=== PATIENT | male | born 1995 | race Caucasian/White ===

== ENCOUNTER 2020-05-10 14:27 | Emergency (ER) | payer OTHER, SELFPAY ==
[2020-05-10 15:27] VITALS: BP 145/76; BP 159/99; PULSE 102; PULSE 82; RESP 18; TEMP 36.9; O2SAT 100; O2SAT 99; BMI 36.2
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
[2020-05-10] MEDS: Acetaminophen 325 MG TABLET 975 MG PO (17:51)
[2020-05-10 18:58] VITALS: BP 152/88; PULSE 73; RESP 16; TEMP 36.9; O2SAT 98
== END 2020-05-10 19:05 | disposition home or self-care (01) ==
PROVIDERS: Emergency Provider Internal Medicine
DX: S39.012A Strain of muscle, fascia and tendon of lower back, initial encounter (principal); V43.52XA Car driver injured in collision with other type car in traffic accident, initial encounter; Y93.9 Activity, unspecified; Y92.410 Unspecified street and highway as the place of occurrence of the external cause; Y99.9 Unspecified external cause status
CPT/HCPCS: 72100; 99283; 99284

== ENCOUNTER 2021-04-15 15:48 | Emergency (ER) | payer OTHER, SELFPAY ==
[2021-04-15 15:53] VITALS: BP 146/85; PULSE 83; RESP 18; TEMP 36.9; O2SAT 98; BMI 38.5
[2021-04-15 16:49] LABS: Influenza A PCR NEGATIVE (Negative); Influenza B PCR NEGATIVE (Negative); Resp Syncy Virus RNA Qual PCR NEGATIVE (Negative); SARS COV2 PCR INHOUSE NEGATIVE (Negative)
--- NOTE | 2021-04-15 18:21 | ED.URI ---
HPI - URI/Sore Throat General Chief Complaint: Upper Respiratory Symptoms Stated Complaint: stuffy nose,coughing ,body aches Time Seen by Provider: 04/15/21 18:07 Source: patient Mode of arrival: ambulatory Limitations: no limitations History of Present Illness HPI Narrative: 25-year-old male here with complaints of generalized weakness, chills, runny nose noted today. Also having cough. No fevers or chills or vomiting or diarrhea or chest pain or shortness of breath. Patient received norin.tv vaccine x2 Related Data Allergies Allergy/AdvReac Type Severity Reaction Status Date / Time No Known Allergies Allergy Verified 04/15/21 18:14 [No Known Allergies*] Review of Systems Review of Systems: Yes all other systems are reviewed and are negative Constitutional: Constitutional: Reports no additional constitutional complaints, Denies body ache(s), Denies chills, Denies fever(s), Denies headache(s) and Reports weakness Eyes: Eyes: Reports no additional eye complaints and Denies change in vision ENT: Reports system reviewed and no additional complaints, except as documented, Denies dizziness, Denies headache(s), Reports nasal congestion, Reports nasal discharge and Denies neck pain Cardiovascular: Cardiovascular: Reports no additional cardiovascular complaints, Denies chest pain, Denies leg edema and Denies dyspnea Respiratory: Respiratory: Reports no additional respiratory complaints, Reports cough and Denies dyspnea Gastrointestinal: Gastrointestinal: Reports no additional gastrointestinal complaints, Denies abdominal pain, Denies diarrhea, Denies nausea and Denies vomiting Genitourinary: Genitourinary: Denies urinary incontinence Musculoskeletal: Musculoskeletal: Reports no additional musculoskeletal complaints, Denies back pain, Denies arthralgias, Denies joint swelling, Denies neck pain, Denies numbness and Denies tingling Integumentary/Breasts: Skin/Breast: Reports system reviewed and no additional complaints, except as docu and Denies rash Neurologic: Reports system reviewed and no additional complaints, except as documented, Denies Abnormal speech present, Denies dizziness, Denies headache(s), Denies numbness, Denies tingling and Reports weakness PMFSH Past Medical History Attestation statement: The following information was validated with the patient. Source: old records reviewed and nursing notes reviewed Social History Social History Advance Directives: No Advance Directives Information Provided: No Physical Exam Vital Signs: Vital Signs: Last Vital Signs Temp 98.4 F 04/15/21 15:53 Pulse 83 04/15/21 15:53 Resp 18 04/15/21 15:53 BP 146/85 H 04/15/21 15:53 Pulse Ox 98 04/15/21 15:53 BMI result Body Mass Index 38.5 Const: General: cooperative, healthy appearing, comfortable and no acute distress Orientation/consciousness: patient oriented x3 Limitations: no limitations HENMT: Head: Yes normal to inspection Ears: hearing grossly normal bilaterally and TM's normal bilaterally General nose exam: Normal external nose present Face and sinus: Yes normal facial exam Mouth: Normal oral and palatal mucosa present Throat: Yes posterior oropharynx normal, Yes tonsils normal and Yes uvula midline Eyes: General: appearance normal, both eyes and all related structures Pupils: Equal, round and reactive pupils present Neck: Neck: Yes normal visual inspection, Yes full ROM, Yes no lymphadenopathy and Yes no meningeal signs Chest: Chest palpation & inspection: normal inspection of the chest Resp: Effort & Inspection: normal respiratory effort Auscultation: clear to auscultation bilaterally Cardio: Rate: regular rate Rhythm: regular rhythm Peripheral pulses: Peripheral pulses 2+ throughout GI: Inspection: Yes normal to inspection Palpation (GI): Soft to palpation and nontender Auscultation: normal bowel sounds Back/Spine/Pelvis: Thoracic/Lumbar Spine: thoracic and lumbar spine normal to inspection Skin: General skin exam: no rashes or lesions noted Neuro: General: patient oriented x3, no meningeal signs, no focal motor deficits and normal sensation to monofilament Cranial nerves: Yes Equal, round and reactive pupils present Cognition (Neuro): normal cognition Speech: No Abnormal speech present Gait exam (Neuro): Normal gait present Motor exam (neuro): 5/5 motor strength present throughout Extrem: General: Yes normal to inspection Course Course Course Narrative: 25-year-old male here with complaints of generalized weakness, chills, stuffy and runny nose and cough since waking. Exam is benign. COVID, flu, RSV is negative. I discussed with the patient that he should retest for COVID and 48 hours for persistent symptoms. We discussed he should quarantine the meantime. Reviewed worrisome signs and symptoms of when to return to the emergency department. Comfortable discharge home. [facility] - URI/Sore Throat Medical Records Attestation: I reviewed the patient's medical records. Lab Data Attestation: I reviewed the patient's lab results. Labs: Lab Results 04/15/21 Range/Units 16:02 Influenza Type A (PCR) NEGATIVE (Negative) Influenza Type B (PCR) NEGATIVE (Negative) RSV RNA Qual (PCR) NEGATIVE (Negative) SARS-CoV-2 RNA (RT-PCR) NEGATIVE (Negative) Discharge Plan Discharge Clinical Impression: Viral infection Patient Disposition: Home, Self-Care Instructions: Viral Syndrome (ED) Additional Instructions: Your COVID test today was negative. However your symptoms began today and so you need to retest in 48 hours to be sure that you do not of COVID. In the meantime you should quarantine at home. This means not going to work. Increase fluids, rest Take Motrin or Tylenol if able as needed for pain or fever Referrals: Physician,Unknown J [Primary Care Provider] - 2 days Stand Alone Forms: Work/School Release Interventions: ED Discharge Assessment Last Done: 04/15/21 18:36 Discharge Date/Time: 04/15/21 18:37
== END 2021-04-15 18:37 | disposition home or self-care (01) ==
PROVIDERS: Emergency Provider Internal Medicine
DX: B34.9 Viral infection, unspecified (principal); Z20.822 Contact with and (suspected) exposure to COVID-19; R05.9 Cough, unspecified
CPT/HCPCS: 0241U; 36415; 99283

== ENCOUNTER 2022-07-16 12:07 | Emergency (ER) | payer OTHER, SELFPAY ==
[2022-07-16 12:42] VITALS: BP 123/71; PULSE 78; RESP 18; TEMP 36.7; O2SAT 97; BMI 26.9
[2022-07-16 13:08] LABS: IDNOW Serial# 6674DD1D; Strep A Nucleic Acid Negative (Negative)
[2022-07-16 13:39] LABS: Influenza A PCR NEGATIVE (Negative); Influenza B PCR NEGATIVE (Negative); Resp Syncy Virus RNA Qual PCR NEGATIVE (Negative); SARS COV2 PCR INHOUSE NEGATIVE (Negative)
--- NOTE | 2022-07-16 15:16 | ED.URI ---
HPI - URI/Sore Throat General Chief Complaint: Upper Respiratory Symptoms Stated Complaint: sore throat, cough Time Seen by Provider: 07/16/22 15:07 Source: patient Mode of arrival: ambulatory Limitations: no limitations History of Present Illness MD elicited complaint: cough, sore throat, rhinorrhea and nasal congestion Onset (ago): day(s) (2) Consistency: constant Severity: mild Description of mucous: clear, watery and yellow Able to tolerate fluids by mouth: Yes Exacerbating factors: swallowing Relieving factors: nothing Associated symptoms: chills, voice changes, myalgias, rhinorrhea, nasal congestion, sore throat and cough Treatments prior to arrival: none Related Data Previous Rx's Medication Instructions Recorded cyclobenzaprine 10 mg tablet 10 mg PO TID PRN muscle spasm #10 05/10/20 tabs ibuprofen 600 mg tablet 600 mg PO Q8H PRN fever or pain 05/10/20 #20 tabs lidocaine 5 % topical patch 1 patch topical DAILY #15 ea 05/10/20 (Lidoderm) azithromycin 250 mg tablet See Rx Instructions PO .COMPLEX #6 07/16/22 tabs Allergies Allergy/AdvReac Type Severity Reaction Status Date / Time No Known Allergies Allergy Verified 05/10/20 15:31 Review of Systems Review of Systems: Constitutional : No Weight loss, No Fever, + Chills, No Night Sweats, + Fatigue, + Malaise ENT/Mouth : No Hearing loss, No Ear Pain, + Nasal Congestion, No Sinus Pain, No Hoarseness, + sore throat, + Rhinorrhea, No Swallowing Difficulty Eyes: No Eye Pain, No Swelling, No Redness, No Foreign Body, No Discharge, No Vision Changes Cardiovascular : No Chest Pain, No SOB, No Dyspnea on Exertion, No Orthopnea, No Edema, No Palpitations Respiratory : + Cough, No Sputum, No Wheezing, No Smoke Exposure, No Dyspnea Gastrointestinal : No Nausea, No Vomiting, No Diarrhea, No Constipation, No abdominal Pain, No Hematochezia, No Melena Genitourinary : no irregular bleeding, No Dysuria, No Urinary Frequency, No Hematuria, No Urinary Incontinence, No Urgency, No Flank Pain, No Urinary Flow Changes, No Hesitancy Musculoskeletal : No joint pain, + Myalgias, No Joint Swelling Skin : No Skin Lesions, No rash Neuro : No Weakness, No Numbness, No Paresthesias, No Loss of Consciousness, No Dizziness, No Headache Psych : No Anxiety/Panic, No Depression, No SI/HI/AH/VH, No Social Issues, Heme/Lymph: No Bruising, No Bleeding,No Lymphadenopathy Endocrine : No Polyuria, No Polydipsia, No Temperature Intolerance Yes all other systems are reviewed and are negative [facility] Past Medical History Attestation statement: The following information was validated with the patient. Source: old records reviewed and nursing notes reviewed Medical History No known health problems Social History Social History Advance Directives: No Advance Directives Information Provided: Yes Physical Exam Vital Signs: Vital Signs: Last Vital Signs Temp 98.0 F 07/16/22 12:42 Pulse 78 07/16/22 12:42 Resp 18 07/16/22 12:42 BP 123/71 07/16/22 12:42 Pulse Ox 97 07/16/22 12:42 O2 Del Method 07/16/22 12:42 BMI result Body Mass Index 26.9 Vital signs reviewed. Blood pressure normal. Pulse normal. Respiration normal. Oxygen normal. Temperature normal. Appearance: Alert. Oriented X3. No acute distress. Head: Normal external exam. Normocephalic. Atraumatic. Eyes: PERRLA. EOMI. Conjunctiva and sclera normal. Eyelids normal. ENT: EAC normal. TM's Normal. Pharynx normal. Uvula midline. Moist mucous membranes. No lesions/ulcerations or masses noted on the tongue. Normal voice. No trismus noted. No drooling noted. No muffled voice noted. Neck: Normal inspection. Neck supple. FROM. No adenopathy. Thyroid Normal. No meningeal signs. CVS: Normal heart rate and rhythm. Heart sound normal. Pulses normal throughout. No murmurs/rales/gallops. Respiratory: No respiratory distress. Painless inspiration. Breath sounds normal. No wheezes/rales/rhonchi noted. Chest nontender. No accessory muscle usage noted or decreased air movement noted. Abdomen: Soft and nontender. Back: Full range of motion noted. Nontender. Skin: Skin warm and dry. Normal skin color. Normal skin turgor. No rashes/lesions/lacerations noted. Extremities: Extremities exhibit normal range of motion and nontender. Neuro: Oriented X 3. No motor deficit. No sensory deficit. Reflexes normal. Normal steady gait. No focal neuro deficits noted. CN's II-XII intact bilaterally? Vascular: + radial pulses. Normal cap refill. No cyanosis noted to upper extremity nails Course Course Course Narrative: This patient presents with URI symptoms consistent with possible bacterial pharyngitis versus viral syndrome. Differential diagnosis include RSV or influenza. Presentation not consistent with acute bacterial pneumonia, influenza, asthma, transient airway hyperresponsiveness. Presentation not consistent with chronic causes of cough (including GERD, asthma, postnasal discharge, medication side effect, CHF, lung cancer or mass). Not consistent with peritonsillar abscess. Not consistent with Antione's angina. Patient negative for COVID/RSV/flu and strep. Will DC home with antibiotics and symptomatic treatment instructions return if any new or worsening symptoms and to follow up with primary care provider. Patient understands agrees with this plan. Medical Decision Making Lab Data MDM Lab Attestation statement: I reviewed the patient's lab results. Labs: Lab Results 07/16/22 07/16/22 Range/Units 12:48 12:48 Influenza Type A (PCR) NEGATIVE (Negative) Influenza Type B (PCR) NEGATIVE (Negative) RSV RNA Qual (PCR) NEGATIVE (Negative) SARS-CoV-2 RNA (RT-PCR) NEGATIVE (Negative) S. pyogenes GrpA OMAR Negative (Negative) Prescription Management I considered prescription management with: Antibiotic (For URI) Discharge Plan Discharge Clinical Impression: Upper respiratory infection Patient Disposition: Home, Self-Care Instructions: Upper Respiratory Infection (ED) Prescriptions: New azithromycin 250 mg tablet See Rx Instructions PO .COMPLEX Qty: 6 0RF Rx Instructions: take 500 mg today (day 1), then 250 mg for 4 days (days 2-5) No Action cyclobenzaprine 10 mg tablet 10 mg PO TID PRN (Reason: muscle spasm) Qty: 10 0RF ibuprofen 600 mg tablet 600 mg PO Q8H PRN (Reason: fever or pain) Qty: 20 0RF lidocaine [Lidoderm] 5 % adhesive patch,medicated 1 patch topical DAILY Qty: 15 0RF Rx Instructions: leave on most painful area for up to 12 hrs Referrals: Physician,Unknown J [Primary Care Provider] - (your pcp)
== END 2022-07-16 15:47 | disposition home or self-care (01) ==
PROVIDERS: Emergency Provider Emergency Medicine
DX: J06.9 Acute upper respiratory infection, unspecified (principal); J02.9 Acute pharyngitis, unspecified; Z20.822 Contact with and (suspected) exposure to COVID-19; Z20.828 Contact with and (suspected) exposure to other viral communicable diseases
CPT/HCPCS: 0241U; 87651; 99282; 99283

== ENCOUNTER 2022-08-01 19:56 | Emergency (ER) | payer OTHER, SELFPAY ==
--- NOTE | ~2022-08-01 | CT_ITS ---
EXAMINATION: CT ABDOMEN AND PELVIS WITHOUT CONTRAST CLINICAL INFORMATION: Bilateral flank pain COMPARISON: None available. TECHNIQUE: Multidetector volumetric imaging was performed from the superior aspect of the liver through the pubic symphysis. Sagittal and coronal reformatted images were obtained on the technologist's workstation. This CT examination was performed using dose optimization techniques as appropriate, variously including the following: *Automated exposure control *Adjustment of mA and/or kV according to patient size (this includes techniques or standardized protocols for targeted exams where dose is matched to indication/reason for exam; i.e. extremities or head) *Use of iterative reconstruction technique DLP: 591 mGy-cm FINDINGS: LUNG BASES: Unremarkable. ABDOMINAL AND PELVIC WALL: Small fat-containing umbilical hernia. LIVER AND BILIARY TREE: Unremarkable. GALLBLADDER: Unremarkable. PANCREAS: Unremarkable. SPLEEN: Unremarkable. ADRENAL GLANDS: Unremarkable. KIDNEYS AND URETERS: No hydronephrosis or nephrolithiasis GASTROINTESTINAL TRACT: Postsurgical changes of gastric sleeve. Colonic diverticulosis without evidence of diverticulitis. Normal appendix. VASCULAR: Unremarkable. LYMPH NODES/PERITONEUM: No lymphadenopathy. FREE FLUID: None. BLADDER: Unremarkable. PELVIC VISCERA: Unremarkable. OSSEOUS STRUCTURES: L4 pars defects. Multilevel degenerative disc disease. CT/CT abdomen pelvis wo IV con IMPRESSION: 1. No acute findings to extent symptoms of pain. No hydronephrosis or nephrolithiasis.
[2022-08-01 20:00] VITALS: BP 140/74; PULSE 76; RESP 18; TEMP 36.6; O2SAT 100; BMI 25.1
--- NOTE | 2022-08-01 20:02 | ED.BACK ---
HPI - Back Pain/Injury General Chief Complaint: Back Pain/Injury <NAMRATA Figueroa - Last Filed: 08/01/22 20:03> Stated Complaint: Back Pain <NAMRATA Figueroa - Last Filed: 08/01/22 20:03> Time Seen by Provider: 08/01/22 21:28 <NAMRATA Figueroa - Last Filed: 08/01/22 20:03> Source: patient and RN notes reviewed <Nirav Arshad - Last Filed: 08/01/22 22:29> Mode of arrival: ambulatory <Nirav Arshad - Last Filed: 08/01/22 22:29> Limitations: no limitations <Nirav Jeancarlos - Last Filed: 08/01/22 22:29> History of Present Illness HPI Narrative: 26-year-old male presents for evaluation of bilateral lower back pain. Patient reports the pain radiates down his right leg. His pain started 3 days ago when he woke up. He reports he has had history of similar pain in the past. Denies any specific injury but does admit that he is heavy lifting every day at work Denies any numbness or tingling. Denies any bladder or bowel incontinence or urinary retention. Patient shows me an MRI reports that he had done in February which shows moderate disc bulge at the L4-L5 level. No central canal stenosis. He reports that Neurosurgery had previously recommended he go ahead with surgical intervention with the patient declined at this time. It was also recommended that he undergo corticosteroid injections which he was hesitant to start as well. <Nirav Jeancarlos - Last Filed: 08/01/22 22:29> Related Data Home Medications: Previous Rx's Medication Instructions Recorded cyclobenzaprine 10 mg tablet 10 mg PO TID PRN muscle spasm #10 05/10/20 tabs ibuprofen 600 mg tablet 600 mg PO Q8H PRN fever or pain 05/10/20 #20 tabs lidocaine 5 % topical patch 1 patch topical DAILY #15 ea 05/10/20 (Lidoderm) azithromycin 250 mg tablet See Rx Instructions PO .COMPLEX #6 07/16/22 tabs dexamethasone 4 mg tablet 4 mg PO BID #6 tabs 08/01/22 methocarbamol 750 mg tablet 750 mg PO TID muscle spasms #12 08/01/22 tabs <NAMRATA Figueroa - Last Filed: 08/01/22 20:03> Allergies/Adverse Reactions: Allergies Allergy/AdvReac Type Severity Reaction Status Date / Time No Known Allergies Allergy Verified 08/01/22 20:03 <NAMRATA Figueroa - Last Filed: 08/01/22 20:03> Review of Systems Constitutional: Constitutional: Reports as per HPI, Denies chills, Denies fatigue, Denies fever(s) and Denies headache(s) <Nirav Arshad - Last Filed: 08/01/22 22:29> ENT: Denies headache(s) <Niravhéctor Ogdeny - Last Filed: 08/01/22 22:29> Cardiovascular: Cardiovascular: Denies chest pain and Denies dyspnea <Nirav Ogdeny - Last Filed: 08/01/22 22:29> Respiratory: Respiratory: Denies cough and Denies dyspnea <Nirav Ogdeny - Last Filed: 08/01/22 22:29> Gastrointestinal: Gastrointestinal: Denies abdominal pain, Denies constipation and Denies vomiting <Nirav Ogdeny - Last Filed: 08/01/22 22:29> Genitourinary: Genitourinary: Denies difficulty urinating and Denies dysuria <Nirav Ogdeny - Last Filed: 08/01/22 22:29> Musculoskeletal: Musculoskeletal: Reports back pain <Niravhéctor Ogdeny - Last Filed: 08/01/22 22:29> Neurologic: Denies headache(s) and Denies focal weakness <Nirav Ogdeny - Last Filed: 08/01/22 22:29> Endocrine: Endocrine: Denies fatigue <Nirav Ogdeny - Last Filed: 08/01/22 22:29> PMFSH Past Medical History Medical History: Medical History No known health problems <NAMRATA Figueroa - Last Filed: 08/01/22 20:03> Social History Social History: Social History Advance Directives: No Advance Directives Information Provided: No <NAMRATA Figueroa - Last Filed: 08/01/22 20:03> Physical Exam Vital Signs: Vital Signs: Last Vital Signs Temp 97.8 F 08/01/22 20:00 Pulse 76 08/01/22 20:00 Resp 18 08/01/22 20:00 BP 140/74 H 08/01/22 20:00 Pulse Ox 100 08/01/22 20:00 O2 Del Method Room Air 08/01/22 20:00 BMI result Body Mass Index 25.1 <NAMRATA Figureoa - Last Filed: 08/01/22 20:03> Vital Signs: Last Vital Signs Temp 97.8 F 08/01/22 20:00 Pulse 76 08/01/22 20:00 Resp 18 08/01/22 20:00 BP 140/74 H 08/01/22 20:00 Pulse Ox 100 08/01/22 20:00 O2 Del Method Room Air 08/01/22 20:00 BMI result Body Mass Index 25.1 <Nirav Ogdeny - Last Filed: 08/01/22 22:29> Const: General: healthy appearing, comfortable, no acute distress, alert and awake <Nirav O - Last Filed: 08/01/22 22:29> Nutritional Appearance: well nourished <Nirav Damian - Last Filed: 08/01/22 22:29> Orientation/consciousness: patient oriented x3 <Nirav O - Last Filed: 08/01/22 22:29> HEENT: Head: Yes normocephalic and Yes atraumatic <Nirav Damian - Last Filed: 08/01/22 22:29> Throat: Yes posterior oropharynx normal <Nirav Damian - Last Filed: 08/01/22 22:29> Eyes: Eyelids: Yes eyelids normal <Nirav Damian - Last Filed: 08/01/22 22:29> Conjunctivae: conjunctivae normal <Nirav Damian - Last Filed: 08/01/22 22:29> Sclerae: sclerae normal <Nirav Damian - Last Filed: 08/01/22 22:29> Corneas: corneas normal <Nirav Damian - Last Filed: 08/01/22 22:29> Pupils: Equal, round and reactive pupils present <Nirav O - Last Filed: 08/01/22 22:29> EOM: EOMs intact bilaterally <Nirav Last Filed: 08/01/22 22:29> Neck: Neck: Yes full ROM <Nirav - Last Filed: 08/01/22 22:29> Resp: Effort & Inspection: normal respiratory effort, able to speak in complete sentences, no audible wheezes and not labored <Nirav - Last Filed: 08/01/22 22:29> Auscultation: clear to auscultation bilaterally <Nirav Damian - Last Filed: 08/01/22 22:29> Cardio: Rate: regular rate < - Last Filed: 08/01/22 22:29> Rhythm: regular rhythm < - Last Filed: 08/01/22 22:29> GI: Inspection: No distended < Last Filed: 08/01/22 22:29> Palpation (GI): Soft to palpation, not firm, nontender, no guarding and not rigid <Nirav O - Last Filed: 08/01/22 22:29> Auscultation: normoactive bowel sounds <Nirav O Last Filed: 08/01/22 22:29> Back/Spine/Pelvis: Other: Patient has nonspecific tenderness across the entire lumbar region without focal tenderness or deformity. Straight leg raise negative bilaterally. < - Last Filed: 08/01/22 22:29> Skin: General skin exam: no rashes or lesions noted and elasticity normal <Nirav O - Last Filed: 08/01/22 22:29> Neuro: General: patient oriented x3 <Nirav Damian - Last Filed: 08/01/22 22:29> Cranial nerves: Yes CN's II-XII intact bilaterally, Yes Equal, round and reactive pupils present and Yes Bilaterally intact EOM present < - Last Filed: 08/01/22 22:29> Cognition (Neuro): normal cognition <Nirav Arshad - Last Filed: 08/01/22 22:29> Motor exam (neuro): 5/5 motor strength present throughout <Nirav Arshad - Last Filed: 08/01/22 22:29> Course Course Course Narrative: This is an RME: Additional HPI, ROS, PE not included below will be deferred to primary provider. 26-year-old male presents for evaluation of bilateral flank pain times a few days, worse with movement better at rest. Denies blunt trauma. Reports intermittent sharp shooting pain bilateral flanks. Denies urinary symptoms. Tells me back pain radiates to right buttocks at times. Denies fevers, chills, nausea, vomiting, headache, vision changes, chest pain, shortness of breath. Tells me he recently got back from a cruise. Denies red flag symptoms Physical exam with bilateral paraspinous tenderness in lumbar region. No midline tenderness. No saddle paresthesias. Plan at this time CT of the abdomen pelvis without contrast to rule out kidney stones. <NAMRATA Figueroa - Last Filed: 08/01/22 20:03> Medications Administered Discontinued Medications Generic Name Dose Route Start Last Admin Trade Name Freq PRN Reason Stop Dose Admin Ketorolac Tromethamine 30 mg 08/01/22 19:57 08/01/22 20:29 Ketorolac Tromethamine 15 Mg/Ml Vial IM 08/01/22 19:58 30 mg ONCE ONE Administration Lidocaine 1 patch 08/01/22 19:57 08/01/22 20:30 Lidocaine 4 % Patch Adh..Patch TRANSDERMA 08/01/22 19:58 1 patch ONCE ONE Administration Protocol <NAMRATA Figueroa - Last Filed: 08/01/22 20:03> Medications Administered Discontinued Medications Generic Name Dose Route Start Last Admin Trade Name Freq PRN Reason Stop Dose Admin Ketorolac Tromethamine 30 mg 08/01/22 19:57 08/01/22 20:29 Ketorolac Tromethamine 15 Mg/Ml Vial IM 08/01/22 19:58 30 mg ONCE ONE Administration Lidocaine 1 patch 08/01/22 19:57 08/01/22 20:30 Lidocaine 4 % Patch Adh..Patch TRANSDERMA 08/01/22 19:58 1 patch ONCE ONE Administration Protocol <Nirav Arshad - Last Filed: 08/01/22 22:29> Medical Decision Making Medical Decision Making [facility] Narrative: 26-year-old male history of chronic back pain presenting for evaluation of back pain. His pain is reproducible, consistent with sciatica/radiculopathy. He had an MRI in February of last year showing L4-L5 disc bulge. GI provider had previously ordered a CT scan of the abdomen pelvis though I have a low suspicion for obstructive uropathy. Patient's CT scan does show moderate constipation which I discussed with the patient. <Nirav Arshad - Last Filed: 08/01/22 22:29> Differential Diagnosis Radiculopathy Sciatica Muscle spasm Disc herniation Obstructive uropathy Pyelonephritis <Nirav Arshad - Last Filed: 08/01/22 22:29> Lab Data [facility] Lab Attestation statement: I reviewed the patient's lab results. <Nirav Arshad - Last Filed: 08/01/22 22:29> Without significant abnormality <Nirav Arshad - Last Filed: 08/01/22 22:29> Result Diagrams: 08/01/22 20:23 08/01/22 20:23 <NAMRATA Figueroa - Last Filed: 08/01/22 20:03> Labs: Lab Results 08/01/22 08/01/22 Range/Units 20:23 20:23 WBC 8.2 (4.8-10.8) X10*3/uL RBC 5.36 (4.60-5.80) X10*6/uL Hgb 13.6 L (14.0-18.0) g/dl Hct 42.4 (42.0-52.0) % MCV 79.1 L (80.0-98.0) fL MCH 25.4 L (27.0-33.0) pg MCHC 32.1 (31.0-36.0) g/dl RDW 14.1 (11.0-16.0) % Plt Count 348 (160-400) X10*3/uL MPV 10.5 (9.4-12.4) fL Immature Gran % (Auto) 0.1 (0.0-0.4) % Neut % (Auto) 52.8 (45-73) % Lymph % (Auto) 33.5 (20-40) % [place] % (Auto) 8.7 (2-11) % Eos % (Auto) 4.2 H (0-4) % Baso % (Auto) 0.7 (0-2) % Lymph # (Auto) 2.7 (1.2-4.9) X10*3/uL [place] # (Auto) 0.7 (0.1-1.2) X10*3/uL Eos # (Auto) 0.3 (0.0-0.4) X10*3/uL Baso # (Auto) 0.1 (0.0-0.2) X10*3/uL Abs Immat Gran (auto) 0.01 (0.00-0.03) X10*3/uL Absolute Neuts (auto) 4.3 (2.0-8.3) x10*3/uL Absolute Nucleated RBC 0.000 (0.0-0.012) X10*3/uL Nucleated RBC % (auto) 0.0 (0.0-0.2) /100WBC Sodium 143 (135-145) mmol/L Potassium 4.4 (3.3-5.1) mmol/L Chloride 105 (96-108) mmol/L Carbon Dioxide 29 (22-29) mmol/L Anion Gap 13 (12-20) BUN 12 (9-16) mg/dL Creatinine 0.77 (0.5-1.4) mg/dL Estim Creat Clear Calc 154.8 Estimated GFR > 60 Random Glucose 77 (60-115) mg/dL Calcium 9.7 (8.4-10.2) mg/dL Total Bilirubin 0.6 (0.0-1.0) mg/dL AST 15 (5-37) U/L ALT 14 (0-40) U/L Alkaline Phosphatase 75 (39-117) U/L Total Protein 6.9 (6.5-8.0) g/dL Albumin 4.1 (3.5-5.0) g/dL <NAMRATA Figueroa - Last Filed: 08/01/22 20:03> Lab Results 08/01/22 08/01/22 Range/Units 20:23 20:23 WBC 8.2 (4.8-10.8) X10*3/uL RBC 5.36 (4.60-5.80) X10*6/uL Hgb 13.6 L (14.0-18.0) g/dl Hct 42.4 (42.0-52.0) % MCV 79.1 L (80.0-98.0) fL MCH 25.4 L (27.0-33.0) pg MCHC 32.1 (31.0-36.0) g/dl RDW 14.1 (11.0-16.0) % Plt Count 348 (160-400) X10*3/uL MPV 10.5 (9.4-12.4) fL Immature Gran % (Auto) 0.1 (0.0-0.4) % Neut % (Auto) 52.8 (45-73) % Lymph % (Auto) 33.5 (20-40) % [place] % (Auto) 8.7 (2-11) % Eos % (Auto) 4.2 H (0-4) % Baso % (Auto) 0.7 (0-2) % Lymph # (Auto) 2.7 (1.2-4.9) X10*3/uL [place] # (Auto) 0.7 (0.1-1.2) X10*3/uL Eos # (Auto) 0.3 (0.0-0.4) X10*3/uL Baso # (Auto) 0.1 (0.0-0.2) X10*3/uL Abs Immat Gran (auto) 0.01 (0.00-0.03) X10*3/uL Absolute Neuts (auto) 4.3 (2.0-8.3) x10*3/uL Absolute Nucleated RBC 0.000 (0.0-0.012) X10*3/uL Nucleated RBC % (auto) 0.0 (0.0-0.2) /100WBC Sodium 143 (135-145) mmol/L Potassium 4.4 (3.3-5.1) mmol/L Chloride 105 (96-108) mmol/L Carbon Dioxide 29 (22-29) mmol/L Anion Gap 13 (12-20) BUN 12 (9-16) mg/dL Creatinine 0.77 (0.5-1.4) mg/dL Estim Creat Clear Calc 154.8 Estimated GFR > 60 Random Glucose 77 (60-115) mg/dL Calcium 9.7 (8.4-10.2) mg/dL Total Bilirubin 0.6 (0.0-1.0) mg/dL AST 15 (5-37) U/L ALT 14 (0-40) U/L Alkaline Phosphatase 75 (39-117) U/L Total Protein 6.9 (6.5-8.0) g/dL Albumin 4.1 (3.5-5.0) g/dL <Nirav Arshad - Last Filed: 08/01/22 22:29> Radiology Impression Discussion of test interpretation with radiology: I have reviewed the radiologist's reading. (No acute findings. Postsurgical sequelae of previous gastric sleeve) <Nirva Arshad - Last Filed: 08/01/22 22:29> Discharge Plan Discharge Clinical Impression: Lumbar radiculopathy <NAMRATA Figueroa - Last Filed: 08/01/22 20:03> Patient Disposition: Home, Self-Care <NAMRATA Figueroa - Last Filed: 08/01/22 20:03> Instructions: Lumbar Radiculopathy (ED) <NAMRATA Figueroa - Last Filed: 08/01/22 20:03> Additional Instructions: Your pain is most likely related to your known L4-L5 disc herniation Take Decadron twice daily for the next 3 days Use methocarbamol as needed for muscle spasms This will make you sleepy, did not drink alcohol or drive after taking it Your CT scan showed an incidental finding of constipation. Increase fluid and fiber intake to help treat this I recommend you follow-up with your neurosurgeon to rediscuss her options for your back pain <NAMRATA Figueroa - Last Filed: 08/01/22 20:03> Prescriptions: New dexamethasone 4 mg tablet 4 mg PO BID Qty: 6 0RF methocarbamol 750 mg tablet 750 mg PO TID Qty: 12 0RF No Action cyclobenzaprine 10 mg tablet 10 mg PO TID PRN (Reason: muscle spasm) Qty: 10 0RF ibuprofen 600 mg tablet 600 mg PO Q8H PRN (Reason: fever or pain) Qty: 20 0RF lidocaine [Lidoderm] 5 % adhesive patch,medicated 1 patch topical DAILY Qty: 15 0RF Rx Instructions: leave on most painful area for up to 12 hrs azithromycin 250 mg tablet See Rx Instructions PO .COMPLEX Qty: 6 0RF Rx Instructions: take 500 mg today (day 1), then 250 mg for 4 days (days 2-5) <NAMRATA Figueroa - Last Filed: 08/01/22 20:03> Stand Alone Forms: Work/School Release <NAMRATA Figueroa - Last Filed: 08/01/22 20:03>
[2022-08-01 20:27] LABS: MANUAL DIFF FLAG NO
[2022-08-01] MEDS: Ketorolac Tromethamine 15 MG/ML VIAL 30 MG IM (20:29)
[2022-08-01] MEDS: Lidocaine 4 % Patch ADH..PATCH 1 PATCH TRANSDERMA (20:30)
[2022-08-01 20:34] LABS: Basophils Absolute Auto 0.1 X10*3/uL (0.0-0.2); Basophils Percent Auto 0.7 % (0-2); Eosinophils Absolute Auto 0.3 X10*3/uL (0.0-0.4); Eosinophils Percent Auto 4.2 % (0-4); Hematocrit 42.4 % (42.0-52.0); Hemoglobin 13.6 g/dl (14.0-18.0); Imm Gran Abs Auto 0.01 X10*3/uL (0.00-0.03); Imm Gran Pct Auto 0.1 % (0.0-0.4); Lymphocytes Absolute Auto 2.7 X10*3/uL (1.2-4.9); Lymphocytes Percent Auto 33.5 % (20-40); Mean Corpuscular HGB Conc 32.1 g/dl (31.0-36.0); Mean Corpuscular Hemoglobin 25.4 pg (27.0-33.0); Mean Corpuscular Volume 79.1 fL (80.0-98.0); Mean Platelet Volume 10.5 fL (9.4-12.4); Monocytes Absolute Auto 0.7 X10*3/uL (0.1-1.2); Monocytes Percent Auto 8.7 % (2-11); Neutrophils Absolute Auto 4.3 x10*3/uL (2.0-8.3); Neutrophils Percent Auto 52.8 % (45-73); Platelet Count 348 X10*3/uL (160-400); Red Blood Count 5.36 X10*6/uL (4.60-5.80); Red Cell Distribution Width 14.1 % (11.0-16.0); White Blood Count 8.2 X10*3/uL (4.8-10.8)
[2022-08-01 20:52] LABS: Alanine Aminotransferase 14 U/L (0-40); Albumin Level 4.1 g/dL (3.5-5.0); Alkaline Phosphatase 75 U/L (39-117); Anion Gap 13 (12-20); Aspartate Amino Transferase 15 U/L (5-37); Bilirubin Total 0.6 mg/dL (0.0-1.0); Blood Urea Nitrogen 12 mg/dL (9-16); Calcium 9.7 mg/dL (8.4-10.2); Carbon Dioxide 29 mmol/L (22-29); Chloride 105 mmol/L (96-108); Creatinine Clr Calc Pharmacy 154.8; Estimated Glomerular Filt Rate > 60; Glucose Random 77 mg/dL (60-115); Potassium 4.4 mmol/L (3.3-5.1); Sodium 143 mmol/L (135-145); Total Protein 6.9 g/dL (6.5-8.0)
== END 2022-08-01 22:50 | disposition home or self-care (01) ==
PROVIDERS: Physician Assistant; Emergency Provider Emergency Medicine Emergency Medical Services
DX: M54.16 Radiculopathy, lumbar region (principal); R10.2 Pelvic and perineal pain; Z79.899 Other long term (current) drug therapy
CPT/HCPCS: 36415; 74176; 80053; 85025; 96372; 99283; 99284; J1885

== ENCOUNTER 2023-03-09 19:27 | Emergency (ER) | payer OTHER, SELFPAY ==
--- NOTE | ~2023-03-09 | CT_ITS ---
EXAMINATION: CT ABDOMEN AND PELVIS WITH CONTRAST CLINICAL INFORMATION: Epigastric pain, history of sleeve gastrectomy COMPARISON: None available. TECHNIQUE: Multidetector volumetric images were obtained from the superior aspect of the liver through the pubic symphysis following administration 85 mL of Omnipaque 350 intravenous contrast. Sagittal and coronal reformatted images were obtained on the technologist's workstation. Oral contrast: No This CT examination was performed using dose optimization techniques as appropriate, variously including the following: *Automated exposure control *Adjustment of mA and/or kV according to patient size (this includes techniques or standardized protocols for targeted exams where dose is matched to indication/reason for exam; i.e. extremities or head) *Use of iterative reconstruction technique DLP: 491 mGy-cm FINDINGS: LUNG BASES: Unremarkable. LIVER AND BILIARY TREE: Unremarkable. GALLBLADDER: Unremarkable. PANCREAS: No peripancreatic fluid or fat stranding. SPLEEN: Unremarkable. ADRENAL GLANDS: Unremarkable. KIDNEYS AND URETERS: Unremarkable. GASTROINTESTINAL TRACT: Postoperative appearance from sleeve gastrectomy. No inflammatory fat stranding or fluid about the surgical margin. VASCULAR: Mild inflammatory fat stranding about the celiac axis and proximal superior mesenteric artery, nonspecific. Otherwise unremarkable. LYMPH NODES: No lymphadenopathy. PERITONEUM: No ascites. BLADDER: Unremarkable. PELVIC VISCERA: Unremarkable. ABDOMINAL AND PELVIC WALL: Unremarkable. OSSEOUS STRUCTURES: Bilateral L4 pars defects with minimal anterolisthesis of L4 on L5. CT/CT abdomen pelvis w IV con IMPRESSION: 1. Postoperative appearance from sleeve gastrectomy. No acute abnormality of the abdomen or pelvis. 2. Mild inflammatory fat stranding about the celiac axis and proximal superior mesenteric artery, nonspecific. Although there is no other evidence of inflammation tracking along the pancreas, given proximity, consider correlation with lipase. 3. Bilateral L4 pars defects with minimal anterolisthesis of L4 on L5.
[2023-03-09 19:37] VITALS: BP 107/66; PULSE 83; RESP 16; TEMP 36.5; O2SAT 100; BMI 27.5
[2023-03-09 19:46] VITALS: BP 144/72; PULSE 72; O2SAT 99
[2023-03-09 20:00] VITALS: BP 125/73; PULSE 65; RESP 16; TEMP 36.7; O2SAT 100
--- NOTE | 2023-03-09 20:00 | ECG_ITS ---
Test Reason : ABDOMIAL PAIN Blood Pressure : / mmHG Vent. Rate : 058 BPM Atrial Rate : 058 BPM P-R Int : 150 ms QRS Dur : 094 ms QT Int : 408 ms P-R-T Axes : 049 044 026 degrees QTc Int : 400 ms Sinus bradycardia Otherwise normal ECG No previous ECGs available Referred By: Anju Stockton Electronically Signed By:WANDY BREEN MD
--- NOTE | 2023-03-09 20:10 | ED.ABDPAIN ---
HPI - Abdominal Pain General Chief Complaint: Abdominal Pain Stated Complaint: UPPER QUADRANT ABD PAIN,HX OF GASTRIC BYPASS X2YRS Time Seen by Provider: 03/09/23 19:57 Source: patient Mode of arrival: EMS Limitations: no limitations History of Present Illness HPI narrative: Patient comes to the emergency room complaining of sudden onset abdominal pain in epigastric area and couple episodes of vomiting. Patient states that he has been smoking marijuana today, admits that he is not compliant with his diet as he has a gastric sleeve, surgery 1 year ago at [facility]. Patient denies any diarrhea, no bloody stools. Patient denies using any drugs other than THC. Related Data Previous Rx's Medication Instructions Recorded ondansetron 4 mg disintegrating 4 mg PO Q6H PRN nausea and 03/09/23 tablet vomiting #10 tabs Allergies Allergy/AdvReac Type Severity Reaction Status Date / Time No Known Allergies Allergy Verified 03/09/23 19:50 [No Known Allergies*] Review of Systems Review of Systems Constitutional : No Weight loss, No Fever, No Chills, No Night Sweats, No Fatigue, No Malaise ENT/Mouth : No Hearing loss, No Ear Pain, No Nasal Congestion, No Sinus Pain, No Hoarseness, No sore throat, No Rhinorrhea, No Swallowing Difficulty Eyes: No Eye Pain, No Swelling, No Redness, No Foreign Body, No Discharge, No Vision Changes Cardiovascular : No Chest Pain, No SOB, No Dyspnea on Exertion, No Orthopnea, No Edema, No Palpitations Respiratory : No Cough, No Sputum, No Wheezing, No Smoke Exposure, No Dyspnea Gastrointestinal : Complaining of nausea vomiting, no diarrhea or constipation, complaining of epigastric pain Genitourinary : no irregular bleeding, No Dysuria, No Urinary Frequency, No Hematuria, No Urinary Incontinence, No Urgency, No Flank Pain, No Urinary Flow Changes, No Hesitancy Musculoskeletal : No joint pain, No Myalgias, No Joint Swelling Skin : No Skin Lesions, No rash Neuro : No Weakness, No Numbness, No Paresthesias, No Loss of Consciousness, No Dizziness, No Headache Psych : No Anxiety/Panic, No Depression, No SI/HI/AH/VH, No Social Issues, Heme/Lymph: No Bruising, No Bleeding,No Lymphadenopathy Endocrine : No Polyuria, No Polydipsia, No Temperature Intolerance [facility] Past Medical History Surgical History (Updated 03/09/23 @ 20:12 by Anju Stockton MD) H/O gastric sleeve Social History Social History Alcohol intake: current Smoked in Last 30 Days: No Substance Use Type: Marijuana Advance Directives: No Advance Directives Information Provided: Yes Physical Exam ED Vital Signs: Vital Signs - 24 hr 03/09/23 19:37 03/09/23 20:00 03/09/23 22:00 Temperature 97.7 F 98.1 F 98.3 F Pulse Rate 83 65 57 Respiratory Rate 16 16 16 Blood Pressure 107/66 125/73 113/54 L Pulse Oximetry 100 100 98 Oxygen Delivery Method Room Air Room Air Room Air BMI result Body Mass Index 27.5 Const Other: Appearance: Alert. Oriented X3. No acute distress. Well appearing Eyes: Pupils equal, round and reactive to light. ENT: Pharynx normal. Neck: Normal inspection. Neck supple. No lymph nodes noted. No crepitus CVS: Normal heart rate and rhythm. Pulses normal. Normal S1 and S2 Respiratory: No respiratory distress. Breath sounds normal. No Wheezing. No rales Abdomen: Soft no significant pain on palpation in the epigastric area, negative Roman sign, no rebound, no guarding. No rigidity. No distention. Skin: Skin warm and dry. Normal skin color. Normal skin turgor. Extremities: No lower extremity edema. No Lacerations. No Rash Neuro: Oriented X 3. No motor deficit. No sensory deficit. Moving all extremities. No slurred speech. CN 2 through 12 grossly intact Psych: calm, cooperative, normal affect Course Course Course Narrative: -patient receiving IV fluids, Zofran. -labs and imaging pending Medical Decision Making Medical Decision Making MDM Narrative: -my interpretation of CT scan, no obvious abnormality, no SBO -my interpretation of labs: Hematology unremarkable, chemistry normal, lipase normal -patient is well-appearing, no abdominal pain. Discussed the labs and CT scan with the patient -patient's symptoms likely secondary to viral gastroenteritis Differential Diagnosis Differential Diagnoses: The differential diagnosis associated with the presentation includes (Gastric sleeve small function, peptic ulcer disease, perforation, gastroenteritis, gastritis) Admission/Observation Consideration of admission/observation: Escalation of care including admission/observation considered (Given the patient's history and presentation, admission was inserted on arrival) Lab Data MDM Lab Attestation statement: I reviewed the patient's lab results. 03/09/23 20:28 03/09/23 20:28 Labs: Lab Results 03/09/23 Range/Units 20:28 WBC 8.7 (4.8-10.8) X10*3/uL RBC 5.45 (4.60-5.80) X10*6/uL Hgb 13.9 L (14.0-18.0) g/dl Hct 43.8 (42.0-52.0) % MCV 80.4 (80.0-98.0) fL MCH 25.5 L (27.0-33.0) pg MCHC 31.7 (31.0-36.0) g/dl RDW 13.6 (11.0-16.0) % Plt Count 284 (160-400) X10*3/uL MPV 10.6 (9.4-12.4) fL Immature Gran % (Auto) 0.3 (0.0-0.4) % Neut % (Auto) 69.5 (45-73) % Lymph % (Auto) 20.9 (20-40) % [place] % (Auto) 7.0 (2-11) % Eos % (Auto) 1.6 (0-4) % Baso % (Auto) 0.7 (0-2) % Lymph # (Auto) 1.8 (1.2-4.9) X10*3/uL [place] # (Auto) 0.6 (0.1-1.2) X10*3/uL Eos # (Auto) 0.1 (0.0-0.4) X10*3/uL Baso # (Auto) 0.1 (0.0-0.2) X10*3/uL Abs Immat Gran (auto) 0.03 (0.00-0.03) X10*3/uL Absolute Neuts (auto) 6.0 (2.0-8.3) x10*3/uL Absolute Nucleated RBC 0.000 (0.0-0.012) X10*3/uL Nucleated RBC % (auto) 0.0 (0.0-0.2) /100WBC Sodium 141 (135-145) mmol/L Potassium 3.6 (3.3-5.1) mmol/L Chloride 106 (96-108) mmol/L Carbon Dioxide 29 (22-29) mmol/L Anion Gap 10 L (12-20) BUN 11 (9-16) mg/dL Creatinine 0.76 (0.5-1.4) mg/dL Estim Creat Clear Calc 155.4 Estimated GFR > 60 Random Glucose 90 (60-115) mg/dL Calcium 9.5 (8.4-10.2) mg/dL Total Bilirubin 0.5 (0.0-1.0) mg/dL Direct Bilirubin 0.2 (0.0-0.5) mg/dL AST 16 (5-37) U/L ALT 9 (0-40) U/L Alkaline Phosphatase 58 (39-117) U/L Total Protein 7.3 (6.5-8.0) g/dL Albumin 4.3 (3.5-5.0) g/dL Lipase 22 (8-78) U/L Ethyl Alcohol < 10 mg/dL Independent Interpretation I performed an independent interpretation of an: CT Scan Radiology Impression Discussion of test interpretation with radiology: I have reviewed the radiologist's reading. Radiologist Impression: INDINGS: LUNG BASES: Unremarkable. LIVER AND BILIARY TREE: Unremarkable. GALLBLADDER: Unremarkable. PANCREAS: No peripancreatic fluid or fat stranding. SPLEEN: Unremarkable. ADRENAL GLANDS: Unremarkable. KIDNEYS AND URETERS: Unremarkable. GASTROINTESTINAL TRACT: Postoperative appearance from sleeve gastrectomy. No inflammatory fat stranding or fluid about the surgical margin. VASCULAR: Mild inflammatory fat stranding about the celiac axis and proximal superior mesenteric artery, nonspecific. Otherwise unremarkable. LYMPH NODES: No lymphadenopathy. PERITONEUM: No ascites. BLADDER: Unremarkable. PELVIC VISCERA: Unremarkable. ABDOMINAL AND PELVIC WALL: Unremarkable. OSSEOUS STRUCTURES: Bilateral L4 pars defects with minimal anterolisthesis of L4 on L5. CT/CT abdomen pelvis w IV con IMPRESSION: 1. Postoperative appearance from sleeve gastrectomy. No acute abnormality of the abdomen or pelvis. 2. Mild inflammatory fat stranding about the celiac axis and proximal superior mesenteric artery, nonspecific. Although there is no other evidence of inflammation tracking along the pancreas, given proximity, consider correlation with lipase. 3. Bilateral L4 pars defects with minimal anterolisthesis of L4 on L5. Medications Administered Discontinued Medications Generic Name Dose Route Start Last Admin Trade Name Freq PRN Reason Stop Dose Admin Sodium Chloride 1,000 mls @ 999 mls/hr 03/09/23 20:00 03/09/23 22:19 Ns IVCONT 03/09/23 21:00 Infused .Q1H1M ONE Infusion Iohexol 100 ml 03/09/23 21:53 03/09/23 21:54 Iohexol 350 Mg/Ml 100 Ml Infus..Btl IV 03/09/23 21:54 85 ml ONCE ONE Administration Ondansetron HCl 4 mg 03/09/23 20:09 03/09/23 20:32 Ondansetron Hcl 4 Mg/2 Ml Vial IVPUSH 03/09/23 20:10 4 mg ONCE ONE Administration Critical Care Time Critical Care Time Critical Care Time: Yes Total Critical Care Time: 60 Attestation: I have personally provided critical care time. Time includes review of lab data, radiology results, discussion with consultants, and monitoring for potential decompensation. Intervention performed as documented. Discharge Plan Discharge Clinical Impression: Nausea & vomiting Patient Disposition: Home, Self-Care Instructions: Acute Nausea and Vomiting (ED) Additional Instructions: Please follow-up with your primary care physician tomorrow. If you have any worsening or new symptoms, please return to the emergency room or call 911 Prescriptions: New ondansetron 4 mg tablet,disintegrating 4 mg PO Q6H PRN (Reason: nausea and vomiting) Qty: 10 0RF
[2023-03-09] MEDS: 0.9 % Sodium Chloride 1,000 ML 999 ML IVCONT (20:29)
[2023-03-09 20:32] LABS: MANUAL DIFF FLAG NO
[2023-03-09] MEDS: ondansetron HCL 4 MG/2 ML VIAL IVPUSH (20:32)
[2023-03-09 20:35] LABS: Basophils Absolute Auto 0.1 X10*3/uL (0.0-0.2); Basophils Percent Auto 0.7 % (0-2); Eosinophils Absolute Auto 0.1 X10*3/uL (0.0-0.4); Eosinophils Percent Auto 1.6 % (0-4); Hematocrit 43.8 % (42.0-52.0); Hemoglobin 13.9 g/dl (14.0-18.0); Imm Gran Abs Auto 0.03 X10*3/uL (0.00-0.03); Imm Gran Pct Auto 0.3 % (0.0-0.4); Lymphocytes Absolute Auto 1.8 X10*3/uL (1.2-4.9); Lymphocytes Percent Auto 20.9 % (20-40); Mean Corpuscular HGB Conc 31.7 g/dl (31.0-36.0); Mean Corpuscular Hemoglobin 25.5 pg (27.0-33.0); Mean Corpuscular Volume 80.4 fL (80.0-98.0); Mean Platelet Volume 10.6 fL (9.4-12.4); Monocytes Absolute Auto 0.6 X10*3/uL (0.1-1.2); Neutrophils Percent Auto 69.5 % (45-73); Platelet Count 284 X10*3/uL (160-400); Red Blood Count 5.45 X10*6/uL (4.60-5.80); Red Cell Distribution Width 13.6 % (11.0-16.0); White Blood Count 8.7 X10*3/uL (4.8-10.8)
[2023-03-09 20:48] LABS: Alanine Aminotransferase 9 U/L (0-40); Albumin Level 4.3 g/dL (3.5-5.0); Alkaline Phosphatase 58 U/L (39-117); Anion Gap 10 (12-20); Aspartate Amino Transferase 16 U/L (5-37); Bilirubin Direct 0.2 mg/dL (0.0-0.5); Bilirubin Total 0.5 mg/dL (0.0-1.0); Blood Urea Nitrogen 11 mg/dL (9-16); Calcium 9.5 mg/dL (8.4-10.2); Carbon Dioxide 29 mmol/L (22-29); Chloride 106 mmol/L (96-108); Creatinine Clr Calc Pharmacy 155.4; Estimated Glomerular Filt Rate > 60; Glucose Random 90 mg/dL (60-115); Lipase 22 U/L (8-78); Potassium 3.6 mmol/L (3.3-5.1); Sodium 141 mmol/L (135-145); Total Protein 7.3 g/dL (6.5-8.0)
[2023-03-09 20:50] LABS: Ethanol < 10 mg/dL
[2023-03-09] MEDS: iohexoL 350 MG/ML 100 ML INFUS..BTL IV (21:54)
[2023-03-09 22:00] VITALS: BP 113/54; PULSE 57; RESP 16; TEMP 36.8; O2SAT 98
--- NOTE | 2023-03-09 22:42 | PC.NURSE ---
pt a&ox4, vss, reporting some improvement in nausea/abd pain after flds and antiemetic. pt resting quietly, pending CT scan results. no new orders at this time.
--- NOTE | 2023-03-09 23:28 | PC.NURSE ---
Took over care from YENNY Canales, pt resting in bed, stating he feels better than when he arrived, pt awaiting disposition.
[2023-03-09 23:31] VITALS: BP 102/66; PULSE 60; RESP 17; TEMP 36.7; O2SAT 100
--- NOTE | 2023-03-09 23:55 | PC.NURSE ---
Reviewed discharge instructions with pt. pt verbalized understanding, no sign of distress.
== END 2023-03-09 23:57 | disposition home or self-care (01) ==
PROVIDERS: Emergency Provider Emergency Medicine
DX: R11.2 Nausea with vomiting, unspecified (principal); R10.13 Epigastric pain; Z98.84 Bariatric surgery status
CPT/HCPCS: 36415; 74177; 80048; 80076; 80307; 83690; 85025; 93005; 96361; 96374; 99285; J2405; Q9967

== ENCOUNTER 2023-04-25 18:46 | Emergency (ER) | payer OTHER, SELFPAY ==
[2023-04-25 19:00] VITALS: BP 128/93; PULSE 95; RESP 18; TEMP 36.6; O2SAT 95; BMI 23.7
--- NOTE | 2023-04-25 19:40 | PC.NURSE ---
Addendum entered by Bita Norman 04/25/23 19:42: Security and registration notified. Original Note: Pt requests no female visitors. No information to be given to Charlette REYES 1995, Phone number [phone]
[2023-04-25 19:44] VITALS: BP 133/78; PULSE 83; RESP 15; TEMP 36.8; O2SAT 98
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
[2023-04-25 20:00] VITALS: BP 131/79; PULSE 83; RESP 18; TEMP 36.9; O2SAT 96
--- NOTE | 2023-04-25 21:42 | PC.NURSE ---
care team at bedside to discuss pt care, no new orders at this time.
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
--- NOTE | 2023-04-26 02:04 | PC.NURSE ---
pt ambulated to bathroom with steady gait at this time.
[2023-04-26 06:44] VITALS: BP 119/62; PULSE 71; RESP 15; TEMP 36.6; O2SAT 95
== END 2023-04-26 08:48 | disposition home or self-care (01) ==
PROVIDERS: Emergency Provider Internal Medicine
DX: F33.1 Major depressive disorder, recurrent, moderate (principal); Z79.899 Other long term (current) drug therapy
CPT/HCPCS: 99284